=== PATIENT | female | born 1960 | race Caucasian/White ===

== ENCOUNTER → 2017-02-28 | Outpatient (CLI) | payer BC ==
--- NOTE | ~2017-02-28 | MY29 ---
[facility] A Service of [facility] RADIOLOGY TEXT RESULTS PATIENT: SUMAYA ALEJANDRA LOCATION: [facility] : 62 UNIT #: [id number] AGE: [address]: Micah Philip MD SEX: F ORDER DR: [id number] [facility] [address] [place], [place] [address] [id number] O MR#: [id number] Acc #: [id number] NAME: SUMAYA ALEJANDRA : 1960 SEX: F STUDY DATE/TIME: 02/28/2017 10:24 UNIT: [facility] ROOM: STUDY DESCRIPTION: MY PINEDA SCREENING W/ CAD BILAT Attending Physician: Micah Philip M.D. Ordering Physician: Micah Philip M.D. Primary Care Physician: Micah Philip M.D. MEDICAL IMAGING REPORT This report is preliminary unless electronic signature is present EXAM Bilateral Digital Screening Mammogram with CAD INDICATION Breast cancer screening. 56-year-old asymptomatic female who reports a sister with premenopausal breast cancer. COMPARISON Outside mammograms performed at [place] [address] dated March 07, 2015 and February 23, 2014. FINDINGS There are scattered fibroglandular tissues. No suspicious findings are present. IMPRESSION No mammographic evidence of malignancy. Annual screening mammography and clinical breast exam are recommended. A result letter will be sent to the patient. Patients over the age of 40 are entered into a reminder system with target due date for the next mammogram. BIRADS: 1 Negative Dictated by... Tanmay Grande M.D. THIS IS AN ELECTRONICALLY VERIFIED REPORT Tanmay Grande M.D. at 03/08/2017 9:03 PM [facility] A Service [facility] RADIOLOGY TEXT RESULTS PATIENT: SUMAYA ALEJANDRA LOCATION: [facility] : 62 UNIT #: [id number] AGE: [address]: Miach Philip MD SEX: F ORDER DR: Harshad TD: 03/06/2017 14:35 JOB #: [id number] MEDICAL IMAGING REPORT Page 1 of 1 COPY
== END | disposition home or self-care (01) ==
LOC: CWCC 09:30
DX: Z12.31 Encounter for screening mammogram for malignant neoplasm of breast (principal); Z80.3 Family history of malignant neoplasm of breast
CPT/HCPCS: G0202